=== PATIENT | male | born 2000 | race Hispanic/Latino ===

== ENCOUNTER 2025-06-08 10:48 | Emergency (ER) | payer SELFPAY ==
[2025-06-08] MEDS ORDERED: Ondansetron PF 4 MG/2 ML Vial ONE (11:09)
== END 2025-06-08 11:47 | disposition home or self-care (01) ==
LOC: ERS 10:48
DX: B34.9 Viral infection, unspecified (principal); R11.0 Nausea
CPT/HCPCS: 87428; 99283; J2405; Q0162